=== PATIENT | female | born 1980 | race Caucasian/White ===

== ENCOUNTER 2017-10-25 19:09 | Emergency (ER) | payer MEDICAID ==
[~2017-10-25] VITALS: Ht 160 cm; Wt 97.2 kg
[2017-10-25 19:29] VITALS: BP 147/112
[2017-10-25] MEDS ORDERED: IBUPROFEN 800 MG TAB PO ONE (19:35)
[2017-10-25] MEDS ORDERED: IBUPROFEN 800 MG TAB ONE (19:37)
--- NOTE | 2017-10-25 19:39 | NUR ---
PATIENT AMBULATED TO ER BED 11.
--- NOTE | 2017-10-25 19:40 | NUR ---
PATIENT PRESENTS TO ED WITH C/O ABD PAIN X 2 DAYS, FEBRILE, TYLENOL TAKEN AT HOME. PT STATES PAIN IS 9/10. ABD ROUND/SOFT WITH ACTIVE BOWEL SOUNDS. AAOX4 WITH EVEN AND STEADY GAIT; LUNGS CLEAR BL; HR EVEN AND REGULAR; PATIENT POSITIONED FOR COMFORT; HOB ELEVATED; BEDRAILS UP X2; BED DOWN. ER MD MADE AWARE OF PT STATUS.
[2017-10-25 20:05] LABS: BILIRUBIN,URINE NEGATIVE (NEGATIVE); BLOOD, URINE 3+ (NEGATIVE); COLOR,URINE YELLOW (YELLOW); LEUKOCYTE ESTERASE ,URINE 1+ (NEGATIVE); NITRITE, URINE NEGATIVE (NEGATIVE); UGLUCOSE NEGATIVE (NEGATIVE)
[2017-10-25 20:12] LABS: APPEARANCE,URINE HAZY (CLEAR)
[2017-10-25 20:34] LABS: CARBON DIOXIDE 23.3 mmol/L (21-32); CREATININE 0.9 mg/dL (0.6-1.3); POTASSIUM 3.3 mmol/L (3.5-5.1); TOTAL BILIRUBIN 0.4 mg/dL (0.0-1.0)
[2017-10-25 20:35] LABS: ALBUMIN 3.5 g/dL (3.4-5.0)
[2017-10-25 20:40] LABS: HEMOGLOBIN 13.8 g/dL (12.0-16.0); MEAN CORPUSCULAR HEMOGLOBIN 29 pg (27-31); MEAN CORPUSCULAR HGB CONC 34 g/dL (33-37); MEAN CORPUSCULAR VOLUME 87.4 fL (80-94); PLATELET COUNT (AUTO) 334 K/uL (140-450); RED CELL DISTRIBUTION WIDTH 11.9 % (11.6-13.7); WHITE BLOOD COUNT (AUTO) 13.8 K/uL (4.8-10.8)
[2017-10-25 20:41] LABS: LYMPHOCYTES % (MANUAL) 9 % (20-46); MONOCYTES % (MANUAL) 4 % (5-12)
[2017-10-25 20:55] LABS: RBC,URINE 0-5 (RARE) /HPF (0-5); WBC,URINE 0-5 (RARE) /HPF (0-5)
[2017-10-25] MEDS ORDERED: NACL 0.9% 1,000 ML IV SCH (21:49)
--- NOTE | 2017-10-25 21:57 | NUR ---
PT TO CT VIA GURJEMAL IN STABLE CONDITION.
--- NOTE | 2017-10-25 23:25 | NUR ---
Patient discharged with v/s stable. Written and verbal after care instructions given and explained. Patient alert, oriented and verbalized understanding of instructions. Ambulatory with steady gait. All questions addressed prior to discharge. ID band removed. Patient advised to follow up with PMD. Rx of ZOFRAN, IBUPROFEN AND CEPHALEXIN given. Patient educated on indication of medication including possible reaction and side effects. Opportunity to ask questions provided and answered.
[2017-10-25 23:26] VITALS: BP 116/71
== END 2017-10-25 23:25 | disposition home or self-care (01) ==
LOC: MED 19:09
DX: N39.0 Urinary tract infection, site not specified (principal); M43.6 Torticollis; G43.909 Migraine, unspecified, not intractable, without status migrainosus; Z98.890 Other specified postprocedural states
CPT/HCPCS: 36415; 80053; 81001; 81025; 83690; 85025; 87086; 99285

== ENCOUNTER 2019-02-10 13:05 | Emergency (ER) | payer MEDICAID ==
[~2019-02-10] VITALS: Ht 160 cm; Wt 104.8 kg
[2019-02-10 13:50] VITALS: BP 150/100
--- NOTE | 2019-02-10 13:57 | NUR ---
PT TRIAGED, SENT BACK TO LOBBY AWAITING FOR BED
--- NOTE | 2019-02-10 14:42 | NUR ---
PT AMBULATED TO BED 08.
--- NOTE | 2019-02-10 14:54 | NUR ---
38/F PRESENTS TO THE ED WITH C/O MIGRAINE/ HEAD PAIN X 1 WEEK. PT HAS A HX OF MIGRAINES. PT STATES THAT HEAD IS THROBBING AND RATES PAIN 10/10 AT THIS TIME. PT REPORTS TAKING OTC MIGRAINE MEDICATION AT 0600 TODAY. PT STATES THAT SHE TENDS TO FEEL DIZZY WITH MIGRAINES AND NOTICES "LITTLE BALLS" BEHIND THE BACK OF HER EARS THAT COME AND GO. PT DENIES CP, SOB, N/V/D AT THIS TIME. PT POSITIONED FOR COMFORT, LIGHTS DIMMED, BED RAILS UP X 1 FOR PT SAFETY. ER MD TO SEE PT. ALLERGY: PENICILLIN HX: MIGRAINES RX: OTC MIGRAINE MEDICATION
[2019-02-10] MEDS ORDERED: MORPHINE SULFATE 2 MG/ML SYR IM ONE (15:30)
[2019-02-10 16:07] VITALS: BP 130/73
== END 2019-02-10 16:07 | disposition home or self-care (01) ==
LOC: MED 13:05
DX: G44.209 Tension-type headache, unspecified, not intractable (principal); R03.0 Elevated blood-pressure reading, without diagnosis of hypertension; G43.909 Migraine, unspecified, not intractable, without status migrainosus; Z98.890 Other specified postprocedural states; Z88.0 Allergy status to penicillin
CPT/HCPCS: 96372; 99283; J2270

== ENCOUNTER 2019-03-18 23:53 | Emergency (ER) | payer MEDICAID ==
[~2019-03-18] VITALS: Ht 160 cm; Wt 104.3 kg
[2019-03-19] VITALS: BP 153/100
--- NOTE | 2019-03-19 | NUR ---
TO BED # 03 AMBULATORY
[2019-03-19] MEDS ORDERED: KETOROLAC 30 MG/ML VIAL IM ONE (00:45)
[2019-03-19] MEDS ORDERED: DICYCLOMINE HCL LIQUID 20 MG, ALUMINUM HYD/MAG/SIMETHICONE 30 ML, LIDOCAINE VISCOUS 2% ... PO ONE ×3 (00:45)
[2019-03-19] MEDS ORDERED: DICYCLOMINE HCL LIQUID 10 MG/5 ML UDC ONE (00:57)
[2019-03-19] MEDS ORDERED: LIDOCAINE VISCOUS 2% 20 ML UDC ONE (00:57)
[2019-03-19] MEDS ORDERED: ALUMINUM HYD/MAG/SIMETHICONE 30 ML UDC ONE (00:57)
--- NOTE | 2019-03-19 01:00 | NUR ---
PT LYING IN BED IN POSITION. SITTING NEARBY.
--- NOTE | 2019-03-19 01:06 | NUR ---
MEDICATED WITH GI COCKTAIL AND 30 MG IM TORADOL FOR 10/10 ABD PAIN. WILL REASSESS.
--- NOTE | 2019-03-19 01:39 | NUR ---
REPORTS RELIEF OF PAIN; 7/10.
[2019-03-19 02:10] LABS: BASOPHILS % (AUTO) 0.5 % (0.0-2.0); EOSINOPHILS # (AUTO) 0.1 K/uL (0-0.4); EOSINOPHILS % (AUTO) 1.5 % (0.0-4.0); HEMATOCRIT 39.7 % (36-48); HEMOGLOBIN 13.3 g/dL (12.0-16.0); LYMPHOCYTES # (AUTO) 2.4 K/uL (2.5-16.5); LYMPHOCYTES % (AUTO) 23.9 % (20.5-51.1); MEAN CORPUSCULAR HEMOGLOBIN 30 pg (27-31); MEAN CORPUSCULAR HGB CONC 34 g/dL (33-37); MEAN CORPUSCULAR VOLUME 88.1 fL (80-94); MONOCYTES # (AUTO) 0.5 K/uL (0.8-1.0); MONOCYTES % (AUTO) 5.3 % (1.7-9.3); NEUTROPHILS # (AUTO) 6.9 K/uL (1.8-7.7); NEUTROPHILS % (AUTO) 68.8 % (42.2-75.2); PLATELET COUNT (AUTO) 347 K/uL (140-450); RED CELL DISTRIBUTION WIDTH 13.2 % (11.6-13.7)
[2019-03-19 02:23] LABS: CARBON DIOXIDE 27.9 mmol/L (21-32); POTASSIUM 3.9 mmol/L (3.5-5.1)
[2019-03-19 02:24] LABS: CREATININE 0.7 mg/dL (0.6-1.3)
[2019-03-19 02:28] LABS: TOTAL BILIRUBIN 0.2 mg/dL (0.0-1.0)
[2019-03-19 02:29] LABS: ALBUMIN 3.2 g/dL (3.4-5.0)
[2019-03-19 03:09] VITALS: BP 138/89
--- NOTE | 2019-03-19 03:09 | NUR ---
Patient discharged with v/s stable. Written and verbal after care instructions given and explained. Patient alert, oriented and verbalized understanding of instructions. Ambulatory with steady gait. All questions addressed prior to discharge. ID band removed. Patient advised to follow up with PMD. Rx of MYLANTA, ACETAMINOPHEN given. Patient educated on indication of medication including possible reaction and side effects. Opportunity to ask questions provided and answered.
== END 2019-03-19 03:09 | disposition home or self-care (01) ==
LOC: MED 23:53
DX: R10.9 Unspecified abdominal pain (principal); R42 Dizziness and giddiness; I10 Essential (primary) hypertension; G43.909 Migraine, unspecified, not intractable, without status migrainosus; Z98.890 Other specified postprocedural states; Z88.0 Allergy status to penicillin
CPT/HCPCS: 36415; 80053; 81002; 81025; 83690; 85025; 96372; 99283; J1885